=== PATIENT | female | born 1970 | race Hispanic/Latino ===

== ENCOUNTER 2018-04-22 00:59 | Emergency (ER) | payer OTHER ==
[~2018-04-22] VITALS: Ht 160 cm; Wt 80.3 kg
[2018-04-22] MEDS ORDERED: NIFEDIPINE 10 MG CAP PO STA (01:31)
[2018-04-22 02:01] LABS: BASOPHILS # (AUTO) 0.1 (0.0-0.1); BASOPHILS % 0.6 % (0.0-1.0); EOSINOPHILS # (AUTO) 0.3 (0.0-0.4); EOSINOPHILS % 3.5 % (0.0-6.0); HEMATOCRIT 35.6 % (34.2-44.1); HEMOGLOBIN 11.1 g/dL (12.0-16.0); LYMPHOCYTES # (AUTO) 1.7 (1.0-3.2); LYMPHOCYTES % 19.6 % (18.0-39.1); MEAN CORPUSCULAR HEMOGLOBIN 28.6 pg (28-32); MEAN CORPUSCULAR HGB CONC 31.2 g/dL (31-35); MEAN CORPUSCULAR VOLUME 91.8 fL (81-99); MONOCYTES # (AUTO) 0.5 (0.2-0.8); MONOCYTES % 5.6 % (4.4-11.3); NEUTROPHILS # (AUTO) 6.1 (2.1-6.9); NEUTROPHILS % 68.9 % (38.7-80.0); PLATELET COUNT 343 x10e3/uL (140-360); RED BLOOD COUNT 3.88 x10e6/uL (3.6-5.1); RED CELL DISTRIBUTION WIDTH 15.5 % (11.7-14.4)
[2018-04-22 02:02] LABS: INR 0.97; PARTIAL THROMBOPLASTIN TIME 32.3 seconds (23.8-35.5); PROTHROMBIN TIME 12.1 seconds (11.9-14.5)
[2018-04-22 02:09] LABS: ALANINE AMINOTRANSFERASE 19 IU/L (0-55); ALBUMIN 2.8 g/dL (3.5-5.0); ALBUMIN/GLOBULIN RATIO 0.6 (0.8-2.0); ALKALINE PHOSPHATASE 84 IU/L (40-150); ANION GAP 13.4 mmol/L (8-16); BLOOD UREA NITROGEN 24 mg/dL (7-26); CALCIUM 9.6 mg/dL (8.4-10.2); CARBON DIOXIDE 22 mmol/L (22-29); CHLORIDE 105 mmol/L (98-107); CREATINE KINASE 164 IU/L (29-168); GLUCOSE 235 mg/dL (74-118); MAGNESIUM 1.8 MG/DL (1.3-2.1); POTASSIUM 4.4 mmol/L (3.5-5.1); SODIUM 136 mmol/L (136-145)
[2018-04-22 02:10] LABS: CLARITY,URINE CLOUDY (CLEAR); COLOR,URINE YELLOW (YELLOW)
[2018-04-22 02:11] LABS: BILIRUBIN,URINE NEGATIVE (NEGATIVE); KETONES,URINE NEGATIVE (NEGATIVE); LEUKOCYTE ESTERASE ,URINE TRACE (NEGATIVE); NITRITE,URINE NEGATIVE (NEGATIVE); PROTEIN,URINE DIPSTICK 3+ (NEGATIVE); URINE UROBILINOGEN 0.2 mg/dL (0.2 - 1)
[2018-04-22 02:29] LABS: BACTERIA,URINE MODERATE /HPF; EPITHELIAL CELLS,URINE FEW /LPF; TRICHOMONAS,URINE MANY; WBC,URINE (MAN) 21-50 /HPF (0-5)
[2018-04-22 02:33] LABS: BUN/CREATININE RATIO 16 (6-25); EST GLOMERULAR FILTRATION RATE 37 ML/MIN (60-)
--- NOTE | 2018-04-22 02:36 | Diagnostic Imaging Report ---
History: Headache, high blood pressure, dizziness Comparison studies: None Technique: Axial images were obtained from the skull base to the vertex. Coronal and sagittal reconstructions obtained from the axial data. Dose modulation, iterative reconstruction, and/or weight based adjustment of the mA/kV was utilized to reduce the radiation dose to as low as reasonably achievable. Findings: Scalp/skull: No abnormalities. No fractures, blastic or lytic lesions. Extra-axial spaces: No masses. No fluid collections. Brain sulci: Appropriate for age. Ventricles: Normal in size and configuration. No hydrocephalus. Parenchyma: No abnormal densities. No masses, hemorrhage, acute or chronic cortical vascular insults. Sellar/suprasellar region: No abnormalities Craniocervical junction: Low-lying cerebellar tonsils. Partial fusion of C2 most mastoid air cells on the left, related to mild nonspecific inflammatory changes. IMPRESSION: No acute abnormalities. Low-lying cerebellar tonsils . Signed by: DR Arvind Pelayo M.D. on 04/22/2018 2:32 AM
--- NOTE | 2018-04-22 02:41 | Diagnostic Imaging Report ---
EXAMINATION: CHEST SINGLE (PORTABLE) INDICATION: Hypertension COMPARISON: None FINDINGS: TUBES and LINES: None. LUNGS: Lungs are not well inflated. Lungs are clear. There is mild prominence of the central pulmonary vasculature, consistent with pulmonary venous congestion. PLEURA: No pleural effusion or pneumothorax. HEART AND MEDIASTINUM: The cardiomediastinal silhouette is unremarkable. BONES AND SOFT TISSUES: No acute osseous lesion. Soft tissues are unremarkable. UPPER ABDOMEN: No free air under the diaphragm. IMPRESSION: No acute thoracic abnormality. Signed by: Dr. Vega Metzger M.D. on 04/22/2018 2:36 AM
[2018-04-22] MEDS ORDERED: CARVEDILOL12.5 MG PO (02:57)
[2018-04-22] MEDS ORDERED: ATORVASTATIN CA20 MG PO (03:00)
[2018-04-22] MEDS ORDERED: NOVOLOG100 UNIT/1 (03:00)
[2018-04-22] MEDS ORDERED: METFORMIN HCL500 M2 PO (03:00)
[2018-04-22] MEDS ORDERED: TRAZODONE HCL50 MG PO (03:00)
[2018-04-22] MEDS ORDERED: FOLIC ACID1 MG PO (03:00)
[2018-04-22] MEDS ORDERED: LANTUS 3ML100 UNITS/ (03:00)
[2018-04-22] MEDS ORDERED: GABAPENTIN300 MG PO (03:00)
[2018-04-22] MEDS ORDERED: POLYETHYLENE GL17 GM PO (03:00)
[2018-04-22] MEDS ORDERED: CEFTRIAXONE SOD 500 MG VIAL IM ONE (04:00)
[2018-04-22] MEDS ORDERED: ONDANSETRON HCL INJ 2 MG/ML VIAL IV STA (04:08)
[2018-04-22] MEDS ORDERED: HYDROCODONE/APAP 10MG-325MG TAB PO ONE (04:15)
[2018-04-22 04:30] VITALS: BP 145/85
== END 2018-04-22 04:56 | disposition home or self-care (01) ==
LOC: ER 00:59
DX: G43.719 Chronic migraine without aura, intractable, without status migrainosus (principal); N30.91 Cystitis, unspecified with hematuria; I10 Essential (primary) hypertension
CPT/HCPCS: 36415; 70450; 71045; 80053; 81001; 82550; 82553; 83735; 83880; 84484; 85025; 85610; 85730; 86850; 86900; 87086; 93005; 99284; J0696; J2405